=== PATIENT | male | born 2000 | race Caucasian/White ===

== ENCOUNTER 2024-06-10 13:45 | Outpatient (AMB) | payer OTHER, SELFPAY ==
--- NOTE | 2024-06-10 13:45 | A.OFFPC_ITS ---
Vital Signs 06/10/24 13:53 Height 6 ft 5.17 in Weight 218 lb BMI 25.7 BP 118/68 Blood Pressure Location Lt brachial Position Sitting Respiration 16 Pulse 62 Pulse Source Pulse Oximeter Pulse Oximetry (%) 98 Oxygen Delivery Method Room Air Intake Visit Reasons: [facility] care/pulmonology referral Intake Note: New patient visit Nutritionalist Required: No Allergies No Known Allergies Allergy (Verified 06/10/24 13:49) Tobacco use date assessed: 06/10/24 Dental Screening Dental Screen Date: 06/10/24 Did you have a dental visit in the last 12 months?: Yes Did you have a dental problem in the last 6 months where you did not have access to dental care?: No Was dental information given to patient?: Patient has dentist HPI HPI Comments History of Present Illness Details 24 year old male with a past medical his tory of moderate persistent asthma presenting to [facility]. Transferring from pediatrics Asthma: well controlled on current regimen. 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 ROS CONSTITUTIONAL: Denies weight loss, fever and chills. HEENT: Denies changes in vision and hearing. RESPIRATORY: Denies SOB and cough. CV: Denies palpitations and CP GI: Denies abdominal pain, nausea, vomiting and diarrhea. : Denies dysuria and urinary frequency. MSK: Denies new myalgia and joint pain. SKIN: Denies rash and pruritus. NEUROLOGICAL: Denies headache PSYCHIATRIC: Denies recent changes in mood. PHYSICAL EXAM: GENERAL: Alert and oriented x 3. NAD EYES: EOMI. Anicteric. HENT: Moist mucous membranes. No scleral icterus. No cervical lymphadenopathy. LUNGS: Clear to auscultation bilaterally. CARDIOVASCULAR: Regular rate and rhythm. No murmur. No JVD. ABDOMEN: Soft, non-tender +bs EXTREMITIES: No edema. Non-tender. SKIN: No rashes or lesions. Warm. NEUROLOGIC: No focal neurological deficits. CN II-XII grossly intact PSYCHIATRIC: Cooperative. 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 Current occupational exposures/hazards: No Cognitive needs: No Hearing needs: No Vision needs: No Questionnaire ACT Questionnaire In the past 4 weeks, how much of the time did your asthma keep you from getting as much done at work, school or at home?: None of the time During the past 4 weeks, how often have you had shortness of breath?: 1-2 times a week (2-3 times in the past 4 weeks) During the past 4 weeks, how often did your asthma symptoms wake you up at night or earlier than usual in the morning?: Not at all During the past 4 weeks, how often have you had to use your rescue inhaler or nebulizer medication?: Once a week or less (1-2 times a month) How would you rate your asthma control during the past 4 weeks?: Well controlled ACT Interpretation: Positive Score: 22 Physical exam (Primary Care) Vital Signs: Last Vital Signs Pulse 62 06/10/24 13:53 Resp 16 06/10/24 13:53 BP 118/68 06/10/24 13:53 Pulse Ox 98 06/10/24 13:53 Oxygen Delivery Method Room Air 06/10/24 13:53 BMI result Body Mass Index 25.7 Tobacco/Smoking Status: Tobacco use Status Tobacco use date assessed 06/10/24 06/10/24 13:46 Patient Tobacco Use Status Never used Tobacco 06/10/24 13:46 e-Cigarette/Vaping Use Never Used 06/10/24 13:46 Coding Level of Care Code Est Pt Level 4 (98520) Diagnoses Establishing care with new doctor, encounter for Z76.89 Moderate persistent asthma without complication J45.40 Asthma complication type: uncomplicated Additional Codes Asthma Control Questionnaire - ACT Interpretation: Positive ([id number]) Assessment & Plan Assessment & Plan (1) Establishing care with new doctor, encounter for: Code(s): Z76.89 - Persons encountering health services in other specified circumstances Category: Medical Plan: 24 year old to establish care. Past medical, surgical, social and family history reviewed. Asthma is controlled. continue current medications which are sent (2) Moderate persistent asthma: Code(s): J45.40 - Moderate persistent asthma, uncomplicated Category: Medical Qualifiers: Asthma complication type: uncomplicated Qualified Code(s): J45.40 - Moderate persistent asthma, uncomplicated Plan: stable without exacerbation Medications: New fluticasone propion-salmeterol 250-50 mcg/dose (Advair Diskus) 1 inh inhalation BID 3 ea 3RF albuterol sulfate 90 mcg/actuation 2 puffs inhalation Q6H 90 days 8.5 grams 3RF montelukast 10 mg PO DAILY 90 tabs 3RF
[2024-06-10 13:53] VITALS: BP 118/68; PULSE 62; RESP 16; O2SAT 98; BMI 25.7
== END 2024-06-10 14:18 | disposition home or self-care (01) ==
LOC: HO.HMCFM 13:46
PROVIDERS: PCP Internal Medicine; Visit Provider Internal Medicine
DX: Z76.89 Persons encountering health services in other specified circumstances (principal); J45.40 Moderate persistent asthma, uncomplicated

== ENCOUNTER → 2024-06-10 13:45 | Outpatient (BNVA) | payer OTHER, SELFPAY | PROVIDERS: PCP Internal Medicine; Visit Provider Internal Medicine | DX: Z76.89 Persons encountering health services in other specified circumstances (principal); J45.40 Moderate persistent asthma, uncomplicated | CPT/HCPCS: 96160 ==